=== PATIENT | male | born 1980 | race Caucasian/White ===

== ENCOUNTER 2019-10-06 12:38 | Emergency (ER) | payer MEDICAID ==
[~2019-10-06] VITALS: Ht 175.3 cm; Wt 81.6 kg
[2019-10-06 12:38] VITALS: BP_SYST 123
--- NOTE | 2019-10-06 12:38 | NUR ---
BROUGHT BACK TO BED #2 AND TRIAGED. REPORT GIVEN TO MATTEO
--- NOTE | 2019-10-06 12:45 | NUR ---
ER Dr. Mann at bedside examining patient.
--- NOTE | 2019-10-06 12:56 | NUR ---
Patient is awake, alert, and oriented x4. is at bedside. Patient is complaining of nausea, vomiting, diarrhea, cough, abdominal pain, and migraine since yesterday.
[2019-10-06] MEDS ORDERED: ONDANSETRON HCL 4 MG/2 ML VIAL IVP ONE (13:00)
[2019-10-06] MEDS ORDERED: NACL 0.9% 1,000 ML IV ONE (13:00)
[2019-10-06 13:21] LABS: BASOPHILS % (AUTO) 0.4 % (0.0-2.0); EOSINOPHILS # (AUTO) 0.2 K/uL (0.0-0.4); HEMATOCRIT 51.7 % (36-54); HEMOGLOBIN 17.9 g/dL (14.0-18.0); LYMPHOCYTES % (AUTO) 9.8 % (20.5-51.5); MEAN CORPUSCULAR HEMOGLOBIN 31 pg (27-31); MEAN CORPUSCULAR HGB CONC 35 % (32-36); MEAN CORPUSCULAR VOLUME 89 fL (79.0-98.0); MONOCYTES # (AUTO) 0.5 K/uL (0.0-1.0); MONOCYTES % (AUTO) 4.6 % (1.7-9.3); NEUTROPHILS # (AUTO) 8.4 K/uL (1.8-7.7); NEUTROPHILS % (AUTO) 83.2 % (40.0-70.0); PLATELET COUNT (AUTO) 235 K/uL (130-430); RED CELL DISTRIBUTION WIDTH 13.6 % (9.0-15.0); WHITE BLOOD COUNT (AUTO) 10.1 K/uL (4.8-10.8)
[2019-10-06 13:26] LABS: BILIRUBIN,URINE NEGATIVE (NEGATIVE); CLARITY/URINE CLEAR (CLEAR); COLOR,URINE YELLOW (YELLOW); GLUCOSE,URINE NEGATIVE (NEGATIVE); KETONES,URINE NEGATIVE (NEGATIVE); LEUKOCYTE ESTERASE ,URINE NEGATIVE (NEGATIVE); NITRITE, URINE NEGATIVE (NEGATIVE); PROTEIN URINE NEGATIVE (NEGATIVE)
[2019-10-06 13:27] LABS: BLOOD, URINE TRACE (NEGATIVE)
[2019-10-06 13:29] LABS: CALCIUM 8.8 mg/dL (8.4-11.0); CREATININE 0.87 mg/dL (0.55-1.30); POTASSIUM 3.5 mmol/L (3.5-5.1)
[2019-10-06 13:35] LABS: ALBUMIN 4.2 g/dL (3.4-4.8); TOTAL BILIRUBIN 0.5 mg/dL (0.0-1.0)
[2019-10-06 13:36] LABS: BACTERIA,URINE FEW /HPF (None Seen); MUCUS,URINE 1+ /LPF (None Seen); WBC,URINE 0-3 /HPF (0-3)
--- NOTE | 2019-10-06 14:35 | NUR ---
Patient given written and verbal discharge instructions and verbalizes understanding. ER MD discussed with patient the results and treatment provided. Patient in stable condition. ID arm band removed. IV catheter removed intact and dressing applied, no active bleeding. Rx of Zofran given. Patient educated on pain management and to follow up with PMD. Pain Scale 0/10. Opportunity for questions provided and answered.
[2019-10-06 15:23] VITALS: BP_SYST 120
== END 2019-10-06 15:23 | disposition home or self-care (01) ==
LOC: SED 12:38
DX: A08.4 Viral intestinal infection, unspecified (principal); R11.2 Nausea with vomiting, unspecified; Z79.899 Other long term (current) drug therapy
CPT/HCPCS: 36415; 80053; 81000; 85025; 96361; 96374; 99283; J2405; J7030

== ENCOUNTER 2020-10-15 10:45 | Emergency (ER) | payer MEDICAID, SELFPAY ==
[~2020-10-15] VITALS: Ht 175.3 cm; Wt 83.9 kg
[2020-10-15 10:45] VITALS: BP_SYST 151
--- NOTE | 2020-10-15 10:45 | NUR ---
BROUGHT INTO OUTSIDE TENT AND TRIAGED.
--- NOTE | 2020-10-15 11:05 | NUR ---
DR PANTOJA OUTSIDE TO EVALUATE PT IN TENT
[2020-10-15] MEDS ORDERED: NACL 0.9% 1,000 ML IV ONE (11:15)
--- NOTE | 2020-10-15 11:29 | NUR ---
Called pt , no answer
[2020-10-15 12:06] LABS: CALCIUM 9.3 mg/dL (8.4-11.0); CREATININE 0.93 mg/dL (0.55-1.30); POTASSIUM 4.1 mmol/L (3.5-5.1)
[2020-10-15 12:11] LABS: ALBUMIN 4.4 g/dL (3.4-4.8); TOTAL BILIRUBIN 0.6 mg/dL (0.0-1.0)
--- NOTE | 2020-10-15 12:17 | NUR ---
BROUGHT BACK TO BED #8 AND REPORT GIVEN TO RYANNE
--- NOTE | 2020-10-15 12:20 | NUR ---
Patient presented to ER C/O SOB. Patient ambulatory to ER afebrile, skin pink & warm, nausea, vomiting, denies diarrhea, pain 08/15 Patient states he has difficulty breathing, runny nose, body aches sore throat and vomiting today.
[2020-10-15] MEDS ORDERED: ONDANSETRON HCL 4 MG/2 ML VIAL ONE (12:43)
[2020-10-15] MEDS ORDERED: ONDANSETRON HCL 4 MG/2 ML VIAL IVP ONE (12:45)
[2020-10-15 12:50] LABS: BASOPHILS % (AUTO) 0.2 % (0.0-2.0); EOSINOPHILS % (AUTO) 0.3 % (0.0-4.0); HEMOGLOBIN 16.5 g/dL (14.0-18.0); LYMPHOCYTES # (AUTO) 1.4 K/uL (1.0-5.5); LYMPHOCYTES % (AUTO) 12.4 % (20.5-51.5); MEAN CORPUSCULAR HEMOGLOBIN 31 pg (27-31); MEAN CORPUSCULAR HGB CONC 34 % (32-36); MEAN CORPUSCULAR VOLUME 91 fL (79.0-98.0); MONOCYTES # (AUTO) 0.5 K/uL (0.0-1.0); MONOCYTES % (AUTO) 4.4 % (1.7-9.3); NEUTROPHILS # (AUTO) 9.3 K/uL (1.8-7.7); NEUTROPHILS % (AUTO) 82.7 % (40.0-70.0); PLATELET COUNT (AUTO) 229 K/uL (130-430); RED CELL DISTRIBUTION WIDTH 13.6 % (9.0-15.0); WHITE BLOOD COUNT (AUTO) 11.2 K/uL (4.8-10.8)
--- NOTE | 2020-10-15 13:07 | NUR ---
PCR Covid test sent to the lab
[2020-10-15 14:34] LABS: BILIRUBIN,URINE NEGATIVE (NEGATIVE); BLOOD, URINE 2+ (NEGATIVE); COLOR,URINE YELLOW (YELLOW); GLUCOSE,URINE NEGATIVE (NEGATIVE); KETONES,URINE 2+ (NEGATIVE); LEUKOCYTE ESTERASE ,URINE NEGATIVE (NEGATIVE); NITRITE, URINE NEGATIVE (NEGATIVE); PROTEIN URINE TRACE (NEGATIVE); UROBILINOGEN,URINE 0.2 (0.2-1.0)
[2020-10-15 14:38] LABS: CLARITY/URINE SLIGHTLY CLOUDY (CLEAR)
[2020-10-15 15:14] LABS: BACTERIA,URINE None Seen /HPF (None Seen); MUCUS,URINE 2+ /LPF (None Seen); WBC,URINE 0-3 /HPF (0-3)
[2020-10-15 15:30] VITALS: BP_SYST 149
--- NOTE | 2020-10-15 15:30 | NUR ---
Patient given written and verbal discharge instructions and verbalizes understanding. ER MD discussed with patient the results and treatment provided. Patient in stable condition. ID arm band removed. IV catheter removed intact and dressing applied, no active bleeding. Rx of zofran given. Patient educated on pain management and to follow up with PMD. Pain Scale 3/10. Opportunity for questions provided and answered. Medication side effect fact sheet provided.
== END 2020-10-15 15:30 | disposition home or self-care (01) ==
LOC: SED 10:45
DX: U07.1 COVID-19 (principal); B34.9 Viral infection, unspecified; R11.10 Vomiting, unspecified
CPT/HCPCS: 36415; 70450; 71045; 76376; 80053; 81000; 84484; 85025; 87426; 93005; 96361; 96374; 99285; J2405; J7030; U0003; C9803

== ENCOUNTER 2021-05-05 22:19 | Emergency (ER) | payer MEDICAID, SELFPAY ==
[~2021-05-05] VITALS: Ht 175.3 cm; Wt 81.6 kg
--- NOTE | 2021-05-05 22:25 | NUR ---
Patient to ER bed 3 to gown for evaluation. Side rails up. Report given to HAFSA WARNER.
[2021-05-05 22:27] VITALS: BP_SYST 106
--- NOTE | 2021-05-05 22:45 | NUR ---
Dr. Lima bedside for pt eval
--- NOTE | 2021-05-05 22:50 | NUR ---
Pt BIB family to ED C/O BUG BITE TO RT HAND.+SWELLING AND PAIN. No other complaints noted VSS no s/s of acute distress Resting on gurney rails up
[2021-05-05] MEDS ORDERED: CEPH250C PO (22:52)
[2021-05-05] MEDS ORDERED: DIPHENHYDRAMINE HCL 25 MG CAPSULE PO ONE (23:00)
[2021-05-05] MEDS ORDERED: cephALEXin 500 MG CAPSULE PO ONE (23:00)
[2021-05-05 23:24] VITALS: BP_SYST 106
--- NOTE | 2021-05-05 23:24 | NUR ---
Patient given written and verbal discharge instructions and verbalizes understanding. ER MD discussed with patient the results and treatment provided. Patient in stable condition. ID arm band removed. Rx of Keflex given. Patient educated on pain management and to follow up with PMD. Pain Scale 0/10 Opportunity for questions provided and answered. Medication side effect fact sheet provided.
== END 2021-05-05 23:24 | disposition home or self-care (01) ==
LOC: SED 22:19
DX: L03.113 Cellulitis of right upper limb (principal); Z79.899 Other long term (current) drug therapy
CPT/HCPCS: 99283; Q0163

== ENCOUNTER 2023-06-18 19:40 | Emergency (ER) | payer MEDICAID ==
[~2023-06-18] VITALS: Ht 172.7 cm; Wt 83.9 kg
[~2023-06-18 19:40] MED LIST: CEPH250C PO
[2023-06-18 20:06] VITALS: BP_SYST 127; PULSE 74; RESP 18; TEMP 98.4; O2SAT 95
[2023-06-18] MEDS ORDERED: NAPR-690 PO (23:53)
[2023-06-18 23:59] VITALS: BP_SYST 125; PULSE 70; RESP 18; TEMP 98.4; O2SAT 97
== END 2023-06-18 23:59 | disposition home or self-care (01) ==
LOC: SED 19:40
DX: M77.31 Calcaneal spur, right foot (principal); M79.671 Pain in right foot; Z79.899 Other long term (current) drug therapy
CPT/HCPCS: 99283